=== PATIENT | male | born 1980 | race Caucasian/White ===

== ENCOUNTER 2021-11-11 07:29 | Outpatient (CLI) | payer OTHER, SELFPAY ==
[2021-11-11 12:26] LABS: Albumin* 4.6 g/dL (3.3-5.0); Chloride* 106 mmol/L (96-114); Potassium* 4.5 mmol/L (3.6-5.1); Sodium* 136 mmol/L (135-149)
[2021-11-11 12:28] LABS: Bilirubin Total* 0.3 mg/dL (0.1-1.5); Estimated Glomerular Filt Rate 96 ml/min
[2021-11-11 12:29] LABS: Alanine Aminotransferase* 22 U/L (4-50); Alkaline Phosphatase* 74 U/L (40-150); Aspartate Amino Transferase* 32 U/L (12-35); Blood Urea Nitrogen* 18 mg/dL (5-24); Calcium* 9.7 mg/dL (8.4-10.6); Carbon Dioxide* 21 mmol/L (20-32); Glucose* 98 mg/dL (60-115); Total Protein* 7.6 g/dL (6.0-8.3)
== END 2021-11-11 07:30 | disposition home or self-care (01) ==
PROVIDERS: PCP Family Medicine; Visit Provider Physician Assistant Medical
DX: I10 Essential (primary) hypertension (principal); R55 Syncope and collapse; D50.9 Iron deficiency anemia, unspecified
CPT/HCPCS: 80053; 84443

== ENCOUNTER 2021-11-18 10:47 | Outpatient (CLI) | payer OTHER, SELFPAY | END 2021-11-18 10:48 | disposition home or self-care (01) | LOC: RAD 10:49 | PROVIDERS: PCP Physician Assistant Medical; Visit Provider Physician Assistant Medical | DX: I10 Essential (primary) hypertension (principal); R55 Syncope and collapse | CPT/HCPCS: 93306; 93320; 93325 ==

== ENCOUNTER 2021-11-29 10:09 | Outpatient (CLI) | payer OTHER, SELFPAY ==
[2021-11-29 11:33] LABS: SARS PCR* Negative SARS-CoV-2 (Negative)
== END 2021-11-29 10:10 | disposition home or self-care (01) ==
LOC: OP CLINIC 10:09
PROVIDERS: PCP Physician Assistant Medical; Visit Provider Surgery
DX: D64.9 Anemia, unspecified (principal); K62.1 Rectal polyp; K92.2 Gastrointestinal hemorrhage, unspecified
CPT/HCPCS: 43239; 45385; 87635; 88305; 99153; J2250; J3010

== ENCOUNTER 2023-03-01 08:57 | Outpatient (CLI) | payer OTHER, SELFPAY | END 2023-03-01 08:58 | disposition home or self-care (01) | PROVIDERS: PCP Physician Assistant Medical; Visit Provider Physician Assistant Medical | DX: I10 Essential (primary) hypertension (principal); D50.9 Iron deficiency anemia, unspecified; R79.89 Other specified abnormal findings of blood chemistry | CPT/HCPCS: 80053; 80061; 84443 ==

== ENCOUNTER 2023-11-01 14:05 | Outpatient (CLI) | payer OTHER, SELFPAY ==
--- NOTE | 2023-11-29 16:03 | ONC.NURNOTE ---
Dx: Low ferritin
== END 2023-11-01 14:06 | disposition home or self-care (01) ==
PROVIDERS: PCP Physician Assistant Medical; Visit Provider Emergency Medicine
DX: I10 Essential (primary) hypertension (principal); K62.5 Hemorrhage of anus and rectum; R79.89 Other specified abnormal findings of blood chemistry; D50.9 Iron deficiency anemia, unspecified
CPT/HCPCS: 80053; 82728

== ENCOUNTER 2023-12-07 10:00 | Outpatient (RCR) | payer OTHER, SELFPAY ==
--- NOTE | 2023-12-05 10:19 | URNOTE ---
Prior auth is not required for Infed ([id number]) per [facility]. Ref #[id number]
[2023-12-07 10:12] VITALS: BP 147/103; PULSE 72; RESP 16; TEMP 36.9; O2SAT 98
[2023-12-07 10:45] VITALS: BP 145/95
[2023-12-07] MEDS: IRON DEXTRAN COMPLEX 25 MG in 0.9 % SODIUM CHLORIDE 100 ml 100 ML 402 MG IVPB (10:57)
[2023-12-07 11:20] VITALS: BP 143/92
[2023-12-07] MEDS: IRON DEXTRAN COMPLEX 975 MG in 0.9 % SODIUM CHLORIDE 250 ml 250 ML 270 MG IVPB (12:27)
[2023-12-07 14:25] VITALS: BP 147/94; PULSE 74; RESP 16; TEMP 36.3; O2SAT 98
== END 2024-06-04 23:59 | disposition home or self-care (01) ==
LOC: CCIC 10:00
PROVIDERS: PCP Physician Assistant Medical; Referring Provider Physician Assistant Medical; Visit Provider Clinical Nurse Specialist
DX: D50.9 Iron deficiency anemia, unspecified (principal)
CPT/HCPCS: 96365; 96376; J1750; J7050

== ENCOUNTER 2024-11-11 08:04 | Outpatient (CLI) | payer OTHER, SELFPAY | END 2024-11-11 08:05 | disposition home or self-care (01) | LOC: NFLDREF 11-12 16:25 | PROVIDERS: PCP Physician Assistant Medical; Referring Provider Physician Assistant Medical; Visit Provider Physician Assistant Medical | DX: I10 Essential (primary) hypertension (principal); R79.89 Other specified abnormal findings of blood chemistry; D50.8 Other iron deficiency anemias; L03.90 Cellulitis, unspecified | CPT/HCPCS: 80053; 80061; 84443 ==